=== PATIENT | male | born 1970 | race Caucasian/White ===

== ENCOUNTER 2021-08-12 01:40 | Emergency (ER) | payer MEDICAID ==
[~2021-08-12] VITALS: Ht 167.6 cm; Wt 77.1 kg
[2021-08-12 01:55] VITALS: BP 126/77
--- NOTE | 2021-08-12 02:02 | NUR ---
PT TAKEN TO ER BED 06
[2021-08-12] MEDS ORDERED: cefTRIAXone 500 MG in LIDOCAINE MPF 1% 1 ML IM ONE (02:15)
[2021-08-12] MEDS ORDERED: DOXYCYCLINE 100 MG CAP PO SCH (02:15)
--- NOTE | 2021-08-12 02:15 | NUR ---
50 y/o male bib self for penile discharge x1 day. pt states he noticed discharge and wanted to come in and check . he states he has had uti before. pt denies pain. pt denies n/f/d/v/cough/sob. pt denies pmh nka
[2021-08-12] MEDS ORDERED: MUPI2CRE22 TP ×3 (02:19→04:02)
[2021-08-12] MEDS ORDERED: DOXY-487 PO ×3 (02:19→04:02)
[2021-08-12] MEDS ORDERED: cefTRIAXone 500 MG VIAL ONE (02:23)
[2021-08-12] MEDS ORDERED: LIDOCAINE MPF 1% 5 ML ONE (02:24)
--- NOTE | 2021-08-12 02:35 | NUR ---
pt provdided water. p tolerated meds well. pt sitting at edge of bed on phone
[2021-08-12 02:55] VITALS: BP 126/77
--- NOTE | 2021-08-12 02:55 | NUR ---
Patient discharged with v/s stable. Written and verbal after care instructions given and explained. Patient alert, oriented and verbalized understanding of instructions. Ambulatory with steady gait. All questions addressed prior to discharge. ID band removed. Patient advised to follow up with PMD. Rx of mupirocin and doxycycline hylclate given. Opportunity to ask questions provided and answered.
--- NOTE | 2021-08-12 03:19 | NUR ---
The patient's care was reviewed and supervised by Mckayla Moncada RN.
== END 2021-08-12 02:55 | disposition home or self-care (01) ==
LOC: MED 01:40
DX: N48.1 Balanitis (principal); F17.200 Nicotine dependence, unspecified, uncomplicated; Z79.2 Long term (current) use of antibiotics
CPT/HCPCS: 81002; 96372; 99283; J0696; J2001; 36415; 87491